=== PATIENT | female | born 1985 | race Two or more races ===

== ENCOUNTER 2020-04-15 10:44 | Day surgery (SDC) | payer OTHER ==
[~2020-04-15] VITALS: Ht 160 cm; Wt 59.9 kg
[~2020-04-15 10:44] MED LIST: CODE1TAB37 PO; COLACE100 MG PO; FOLIC ACID0.8 MG; NAPR500T14 PO
== END 2020-04-15 21:50 | disposition home or self-care (01) ==
LOC: ER 10:44 → CIR.AMB 14:08
PROVIDERS: ATTEND Obstetrics & Gynecology
DX: O02.1 Missed abortion (principal); Z20.828 Contact with and (suspected) exposure to other viral communicable diseases